=== PATIENT | female | born 1995 | race Caucasian/White ===

== ENCOUNTER 2017-03-09 18:52 | Emergency (ER) | payer BC, OTHER ==
[~2017-03-09] VITALS: Ht 170.2 cm; Wt 102.8 kg
[~2017-03-09 18:52] MED LIST: AMICAR PO; CETI10TA10 PO; FERR1TAB13 PO; LXP/10 PO; STR/80 PO; TRAZ100T29 PO
[2017-03-09 18:55] VITALS: TEMP 36.3; Ht 170.2 cm; Wt 102.8 kg
[2017-03-09] MEDS ORDERED: ACET-1256 PO (19:05)
[2017-03-09] MEDS ORDERED: OXYCODONE HCL IR 5 MG TAB (IMMEDIATE RELEASE) PO STA (19:07)
--- NOTE | 2017-03-09 20:11 | DIAGNOSTIC IMAGING REPORT ---
LEFT WRIST MIN 3 VIEWS ROUTINE CLINICAL HISTORY: Left wrist pain following fall. COMPARISON: None FINDINGS: Alignment of left wrist is anatomic. There is no acute fracture of the left carpal bones. There is no acute fracture of the distal left radius or ulna. Soft tissue swelling of the left forearm is noted. IMPRESSION: 1. No acute fracture or dislocation of the left wrist. 2. Soft tissue swelling of the left forearm. Electronically signed by: Osmar Riley M.D. 03/09/2017 8:10 PM Dictated Date/Time: 03/09/2017 8:09 PM
--- NOTE | 2017-03-09 20:12 | DIAGNOSTIC IMAGING REPORT ---
LEFT FOREARM 2 VIEWS ROUTINE CLINICAL HISTORY: Fall. COMPARISON: None FINDINGS: No acute fracture of the left radius or ulna is identified. Alignment of left elbow is anatomic and there is no left elbow joint effusion. There are soft tissue swelling of the left forearm. IMPRESSION: No acute fracture of the left radius or ulna. Electronically signed by: Osmar Riley M.D. 03/09/2017 8:11 PM Dictated Date/Time: 03/09/2017 8:10 PM
[2017-03-09] MEDS ORDERED: OXYC1TAB3 PO (20:43)
[2017-03-09] MEDS ORDERED: OXYCODONE IR HOME PACK PO ONE (20:45)
[2017-03-09 21:03] VITALS: BP 116/78; PULSE 102; O2SAT 98
--- NOTE | 2017-03-10 00:42 | EMERGENCY ROOM VISIT NOTE ---
History First contact with patient: 19:02 Chief Complaint: ARM PAIN Stated Complaint: INJURED L ARM, HURTS, SWOLLEN History of Present Illness The patient is a 22 year old female who presents to the Emergency Room with complaints of injury to her left arm that occurred just prior to arrival. The patient states that she was at work, and the door to an ice machine came down on top of her left arm. The patient does not have numbness or paresthesias. No laceration or gross deformity. She has not taken anything [id number] for her discomfort which she currently rates a 7/10. Review of Systems More than 10 systems were reviewed and otherwise negative with the exception of history of present illness. Past Medical/Surgical History No pertinent chronic medical disease Family History No pertinent family history Social History Smoking Status: Current Every Day Smoker Marital Status: single Occupation Status: employed Current/Historical Medications Scheduled Atomoxetine Hcl (Strattera), 80 MG PO DAILY Cetirizine Hcl (Zyrtec), 10 MG PO DAILY PRN Escitalopram Oxalate (Lexapro), 10 MG PO DAILY Ferrous Sulfate (Kp Ferrous Sulfate), 1 TAB PO DAILY Oxycodone Immediate Rel Tab (Roxicodone Ir), 1-2 TAB PO Q6 Scheduled PRN Acetaminophen (Tylenol), 1,000 MG PO Q6 PRN for Pain Trazodone Hcl (Trazodone), 100 MG PO HS PRN for Sleep Allergies Coded Allergies: No Known Allergies (Unverified , 10/17/12) Physical Exam Vital Signs Date Time Temp Pulse Resp B/P Pulse Ox O2 Delivery O2 Flow Rate FiO2 03/09/17 21:03 102 20 116/78 98 03/09/17 18:55 36.3 124 20 118/81 99 Room Air Pain Rating (0-10): 5.0 Physical Exam VITALS: Vitals are noted on the nurse's note and reviewed by myself. Vital signs stable. GENERAL: Well-developed, well-nourished, white female, who is in no acute distress and resting comfortably. Patient is cooperative with the examination. HEAD: Normocephalic atraumatic. HEART: Regular rate and rhythm without murmurs gallops or rubs. LUNGS: Clear to auscultation bilaterally without wheezes, rales or rhonchi. No retractions or accessory muscle use. MUSCULOSKELETAL: Edema is appreciated over the posterior aspect of the left forearm into the left wrist consistent with a contusion injury. This area is tender without gross deformity. There is no tenderness of the left shoulder, left elbow, or left fingers. 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 Neurovascular status is intact. There is mild tenderness of the wrist but no snuffbox tenderness. She is able to flex and extend at the wrist. NEURO: Patient was alert and oriented to person place and time. CN II through XII grossly intact. Medical Decision & Procedures ER Provider Diagnostic Interpretation: LEFT WRIST MIN 3 VIEWS ROUTINE CLINICAL HISTORY: Left wrist pain following fall. COMPARISON: None FINDINGS: Alignment of left wrist is anatomic. There is no acute fracture of the left carpal bones. There is no acute fracture of the distal left radius or ulna. Soft tissue swelling of the left forearm is noted. IMPRESSION: 1. No acute fracture or dislocation of the left wrist. 2. Soft tissue swelling of the left forearm. LEFT FOREARM 2 VIEWS ROUTINE CLINICAL HISTORY: Fall. COMPARISON: None FINDINGS: No acute fracture of the left radius or ulna is identified. Alignment of left elbow is anatomic and there is no left elbow joint effusion. There are soft tissue swelling of the left forearm. IMPRESSION: No acute fracture of the left radius or ulna. Medications Administered Medications (Trade) Dose Ordered Sig/Ratna Route Start Time Stop Time Status Last Admin Dose Admin Oxycodone HCl (Roxicodone Immediate Rel Tab) 10 mg NOW STAT PO 03/09/17 19:07 03/09/17 19:09 DC 03/09/17 19:18 10 MG Oxycodone HCl (Roxicodone Immediate Rel 5MG Home Pack) 1 homepack UD ONCE PO 03/09/17 20:45 03/09/17 20:46 DC 03/09/17 20:55 1 HOMEPACK ED Course Physical exam and history were performed. Nursing notes and EMR were reviewed. Patient appears to have injured her left forearm just prior to arrival. She was given oral oxycodone here in the department for comfort. 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 X-rays were obtained and do not show evidence of acute fractures. She does not have exam findings consistent with compartment syndrome. Overall the patient appears stable for discharge home. She was instructed on conservative treatment including ice, rest, and compression. She will be given a continuation course of oxycodone and was asked to follow with her PCP in the next few days for recheck. She was otherwise invited back to the ER with any new, worsening, or concerning symptoms. The chart was completed utilizing [employer] Speech Voice Recognition Software. Grammatical errors, random word insertions, pronoun errors, and incomplete sentences are an occasional consequence of this system due to software limitations, ambient noise, and hardware issues. Any formal questions or concerns about the content, text, or information contained within the body of this dictation should be directly addressed to the provider for clarification. . Medical Decision Differential diagnosis includes, but is not limited to: Sprain, strain, fracture , dislocation, subluxation, contusion, and others Impression Primary Impression: Injury of left lower arm Departure Information Dispostion Home / Self-Care Condition GOOD Prescriptions Oxycodone Immediate Rel Tab (ROXICODONE IR) 5 Mg Tab 1-2 TAB PO Q6, #15 TAB For initial treatment Prov: Colt Mckeon PA-C 03/09/17 Forms HOME CARE DOCUMENTATION FORM, IMPORTANT VISIT INFORMATION Patient Instructions My [facility] Additional Instructions You were seen and evaluated today on an emergency basis only. This is not a substitute for, or an effort to provide, complete comprehensive medical care. It is not possible to recognize and treat all injuries or illnesses in a single emergency department visit. For this reason it is recommended that you followup with your primary care physician on Sunday or Sunday for ongoing care and evaluation. Oxycodone (OxyIR) 5mg: Take ONE pill every SIX hours for breakthrough pain. Avoid alcohol, operating machinery or dangerous equipment, working on ladders or roofs, DRIVING, or situations where being under the influence may be dangerous. It is recommended to use an [id number] stool softener such as Colace, 100mg twice daily while taking this medication to avoid constipation. Apply ice 20 minutes on and 20 for additional relief of symptoms. You are welcome to return to the emergency department anytime with new, worsening, or concerning symptoms.
== END 2017-03-09 21:05 | disposition home or self-care (01) ==
LOC: C.EDB 18:54 → C.EDD 21:05
DX: S59.912A Unspecified injury of left forearm, initial encounter (principal); W22.8XXA Striking against or struck by other objects, initial encounter; F17.200 Nicotine dependence, unspecified, uncomplicated